=== PATIENT | female | born 1980 | race Caucasian/White ===

== ENCOUNTER 2017-11-26 08:43 | Emergency (ER) | payer OTHER ==
[~2017-11-26] VITALS: Ht 160 cm; Wt 56.0 kg
[2017-11-26 10:34] VITALS: BP 122/83
== END 2017-11-26 10:35 | disposition home or self-care (01) ==
LOC: EMS 08:46
DX: J06.9 Acute upper respiratory infection, unspecified (principal)
CPT/HCPCS: 99283